=== PATIENT | male | born 1985 | race African-American/Black ===

== ENCOUNTER 2021-07-12 08:38 | Emergency (ER) | payer SELFPAY | END 2021-07-12 11:21 | disposition home or self-care (01) | LOC: JD.ED 08:38 | DX: R07.81 Pleurodynia (principal); Z90.49 Acquired absence of other specified parts of digestive tract; Z20.822 Contact with and (suspected) exposure to COVID-19 | CPT/HCPCS: 36415; 71045; 71045-26; 80053; 84484; 85025; 85379; 85610; 85730; 93005; 99285-25; U0002 ==

== ENCOUNTER 2021-09-05 17:06 | Emergency (ER) | payer OTHER ==
[2021-09-05] MEDS ORDERED: Ketorolac 30 MG/ML SDV IVPUSH ONE (17:27)
[2021-09-05] MEDS ORDERED: Sodium Chloride 0.9% 10 ML Syringe FLUSH PRN (17:27)
[2021-09-05] MEDS ORDERED: Sodium Chloride 0.9% 1,000 ML IV ONE (17:27)
[2021-09-05] MEDS ORDERED: Ondansetron 4 MG/2 ML SDV IVPUSH ONE (17:27)
== END 2021-09-05 19:51 | disposition home or self-care (01) ==
LOC: JD.ED 17:06
DX: T67.5XXA Heat exhaustion, unspecified, initial encounter (principal); Z86.16 Personal history of COVID-19
CPT/HCPCS: 36415; 80053; 85025; 86140; 96361; 96374; 96375; 99284; J1885; J2405; J3490; J7030